=== PATIENT | male | born 1995 | race Hispanic/Latino ===

== ENCOUNTER 2019-04-02 00:51 | Emergency (ER) | payer BC, MEDICAID, OTHER | END 2019-04-02 01:45 | disposition home or self-care (01) | LOC: EDH 00:51 | DX: R06.02 Shortness of breath (principal); L53.9 Erythematous condition, unspecified; T46.7X5A Adverse effect of peripheral vasodilators, initial encounter; Z88.1 Allergy status to other antibiotic agents; Z88.8 Allergy status to other drugs, medicaments and biological substances; Z72.0 Tobacco use; Y92.89 Other specified places as the place of occurrence of the external cause | CPT/HCPCS: 99281 ==

== ENCOUNTER 2019-10-23 01:19 | Emergency (ER) | payer BC ==
[2019-10-23] MEDS ORDERED: FAMOTIDINE 20MG TAB 20 MG TAB ONE (02:57)
[2019-10-23] MEDS ORDERED: PANTOPRAZOLE SODIUM 40 MG TABLET.DR ONE (02:57)
== END 2019-10-23 03:13 | disposition home or self-care (01) ==
LOC: EDH 01:19
DX: R55 Syncope and collapse (principal); R07.89 Other chest pain; R42 Dizziness and giddiness; R00.0 Tachycardia, unspecified; F41.9 Anxiety disorder, unspecified; Z88.8 Allergy status to other drugs, medicaments and biological substances; Z88.1 Allergy status to other antibiotic agents; Z98.890 Other specified postprocedural states
CPT/HCPCS: 82948; 93005